=== PATIENT | female | born 1980 | race Hispanic/Latino ===

== ENCOUNTER 2017-07-10 14:57 | Emergency (ER) | payer BC ==
[2017-07-10] MEDS ORDERED: Sodium Chloride 0.9% 1,000 ML IV STA ×2 (15:58→17:32)
--- NOTE | 2017-07-10 16:09 | ED PDOC ---
HPI: General Adult Time Seen by Provider: 07/10/17 15:44 Chief Complaint (Nursing): GI Problem History Per: Patient Additional Complaint(s): Pt. states since Friday night she's had bodyaches, chills, fever (tmax of 100.6) , multiple episodes of non-bloody watery diarrhea. Also states she's had nausea but no vomiting. She's felt very weak since the onset of all symptoms. Fever has resolved. Pt. has not taken any antipyretics today. Pt. was seen in urgent care yesterday and was prescribed zofran without any relief. Denies abdominal pain, melena, hematochezia, BRBPR, chest pain, SOB, palpitations, back pain, dysuria, hematuria, vomiting, sick contacts, recent travel. Past Medical History Reviewed: Historical Data, Nursing Documentation, Vital Signs Vital Signs: Last Vital Signs Temp 98 F 07/10/17 15:33 Pulse 88 07/10/17 15:33 Resp 18 07/10/17 15:33 BP 101/75 07/10/17 15:33 Pulse Ox 99 07/10/17 17:41 - Medical History Other PMH: Ulcerative colitis - Surgical History Surgical History: No Surg Hx - Family History Family History: States: No Known Family Hx - Home Medications Home Medications: Ambulatory Orders Medication Instructions Recorded Metoclopramide [Reglan] 10 mg PO TID PRN #10 tab 07/10/17 - Allergies Allergies/Adverse Reactions: Allergies Allergy/AdvReac Type Severity Reaction Status Date / Time No Known Allergies Allergy Verified 07/10/17 15:55 Review of Systems ROS Statement: Except As Marked, All Systems Reviewed And Found Negative Gastrointestinal: Positive for: Nausea, Diarrhea Physical Exam - Physical Exam Appears: Positive for: Well, Non-toxic, No Acute Distress Skin: Positive for: Normal Color, Warm. Negative for: Rash Eye Exam: Positive for: Normal appearance. Negative for: Scleral icterus ENT: Positive for: Other (mucous membranes dry). Negative for: Pharyngeal Erythema, Tonsillar Exudate, Tonsillar Swelling Cardiovascular/Chest: Positive for: Regular Rate, Rhythm Respiratory: Positive for: Normal Breath Sounds. Negative for: Respiratory Distress Gastrointestinal/Abdominal: Positive for: Normal Exam, Soft. Negative for: Tenderness (to deep palpation) Back: Positive for: Normal Inspection Extremity: Positive for: Normal ROM Neurologic/Psych: Positive for: Alert, Oriented. Negative for: Aphasia, Facial Droop - Laboratory Results Result Diagrams: 07/10/17 16:50 07/10/17 16:50 - ECG O2 Sat by Pulse Oximetry: 99 - Progress ED Course And Treament: Labs, IV NS bolus x 1, reglan IVPB ordered. 1730 K: 3.1 Kdur 40 mEq, additional IV NS bolus ordered. Pt. informed of results. Reports feeling better. Denies abdominal pain. 1900 On re-evaluation, pt. reports feeling much better. States she was able to sleep in ED. Denies nausea. Tolerated PO in ED. Abd soft and non-tender. No CVA tenderness b/l. Disposition - Clinical Impression Clinical Impression: Gastroenteritis, Hypokalemia, Dehydration - Patient ED Disposition Is Patient to be Admitted: No - Disposition Referrals: [facility] Ying [Outside] Disposition: Routine/Home Disposition Time: 19:00 Condition: IMPROVED Additional Instructions: Follow up with your PMD for further evaluation Return to ED immediately if symptoms worsen Prescriptions: Metoclopramide [Reglan] 10 mg PO TID PRN #10 tab PRN Reason: Nausea/Vomiting Instructions: Hypokalemia (DC), Dehydration, Adult (DC), Diarrhea in Adolescents and Adults Forms: [employer] ([place]) Print Language: BRITISH
[2017-07-10 16:57] LABS: SQUAMOUS EPITHIAL 9 /hpf (0-5); URINE BACTERIA MANY (<OCC); URINE BILIRUBIN NEGATIVE (NEGATIVE); URINE BLOOD NEGATIVE (NEGATIVE); URINE CLARITY CLOUDY (Clear); URINE COLOR YELLOW (YELLOW); URINE GLUCOSE (UA) NEG (Normal); URINE HYALINE CAST 0-2 /hpf (0-2); URINE LEUKOCYTE ESTERASE NEG Leu/uL (Negative); URINE PROTEIN 30 mg/dL (NEGATIVE); URINE UROBILINOGEN 0.2-1.0 mg/dL (0.2-1.0)
[2017-07-10 17:00] LABS: BASO % 0.3 % (0.0-2.0); EOS % 0.4 % (0.0-4.0); HEMOGLOBIN 14.4 g/dL (12.0-16.0); LYMPH # 1.4 K/uL (1.0-4.3); LYMPH % 34.5 % (20.0-40.0); MEAN CELL VOLUME 88.9 fl (81.0-99.0); MEAN CORPUSCULAR HEMOGLOBIN 30.3 pg (27.0-31.0); MEAN CORPUSCULAR HGB CONC 34.1 g/dL (33.0-37.0); MONO # 0.4 K/uL (0.0-0.8); MONO % 10.1 % (0.0-10.0); NEUT # 2.2 K/uL (1.8-7.0); NEUT % 54.7 % (50.0-75.0); NRBC % 0.2 % (0.0-0.0); RBC 4.75 Mil/uL (3.80-5.20); RED CELL DISTRIBUTION WIDTH 13.2 % (11.5-14.5)
[2017-07-10 17:09] LABS: ALBUMIN 4.1 g/dL (3.5-5.0); ALT/SGPT 54 U/L (9-52); AST/SGOT 29 U/L (14-36); BLOOD UREA NITROGEN 17 mg/dl (7-17); CALCIUM 9.3 mg/dL (8.4-10.2); GFR AFRICAN-AMERICAN > 60; GFR NON-AFRICAN AMERICAN > 60
[2017-07-10] MEDS ORDERED: Potassium Chloride 20 mEq ER Tab PO STA (17:32)
[2017-07-10] MEDS ORDERED: Potassium Chloride 20 mEq ER Tab PO ONE (18:10)
[2017-07-10 19:57] VITALS: BP 112/78; PULSE 86; RESP 16; TEMP 98.2; O2SAT 98
== END 2017-07-10 19:54 | disposition home or self-care (01) ==
LOC: H.ER 14:57
DX: K52.9 Noninfective gastroenteritis and colitis, unspecified (principal); E87.6 Hypokalemia; E86.0 Dehydration
CPT/HCPCS: 80053; 81003; 81025; 85025; 87040; 96361; 96374; 99284; J2765; J7040